=== PATIENT | female | born 1995 | race Hispanic/Latino ===

== ENCOUNTER 2017-02-24 16:49 | Outpatient (CLI) | payer BC ==
--- NOTE | 2017-02-24 22:31 | RAD ---
RIGHT FOOT THREE VIEWS: Date: 02-24-17 FINDINGS: No fracture, dislocation, or periosteal reaction was seen. The bones all appear normal. IMPRESSION: No acute finding. POS: HOME
== END 2017-02-24 16:50 | disposition home or self-care (01) ==
LOC: BURRAD 16:49
PROVIDERS: ATTEND Family Medicine
DX: M79.671 Pain in right foot (principal)

== ENCOUNTER 2019-03-18 11:35 | Outpatient (CLI) | payer BC ==
--- NOTE | 2019-03-18 20:16 | ULT ---
PELVIC ULTRASOUND WITH ENDOVAGINAL IMAGIN03/18/19 Ultrasonography of the pelvis was performed for evaluation of irregular bleeding. Scans were initiall y done with the abdominal probe and then followed by images with the endovaginal probe to better see the adnexa. The uterus appears normal and measures 5.6 x 2.7 x 3.8 cm. The endometrium is a normal 4 mm in thickn ess. The right ovary measures 2.6 cm in length. Blood flow is present in the right ovary. There is a 1.9 c m cyst within it with a minimal number of echoes. The left ovary has been surgically removed. There i s no free fluid. IMPRESSION: 1. 1.9 cm right ovarian cyst. 2. Left oophorectomy. POS: HOME
== END 2019-03-18 11:36 | disposition home or self-care (01) ==
LOC: BURULT 11:35
PROVIDERS: ATTEND Physician Assistant
DX: N92.4 Excessive bleeding in the premenopausal period (principal); N83.201 Unspecified ovarian cyst, right side; Z90.721 Acquired absence of ovaries, unilateral
CPT/HCPCS: 76856

== ENCOUNTER 2020-06-05 11:21 | Outpatient (CLI) | payer BC ==
--- NOTE | 2020-06-05 21:10 | RAD ---
CHEST TWO VIEWS: Date: 06-05-2020 Comparison: 04-16-11 FINDINGS: The heart is normal in size. There is no vascular congestion, edema, or pleural effusion. No focal pu lmonary infiltrates are seen. There is a 7 mm nodular density in the left midlung zone but I do not f ully appreciate on the 2010 exam. At most, there may be a small speck here. It is mostly a granuloma and in this age group is probably not of significance. The exam was otherwise unremarkable. IMPRESSION: No acute findings. POS: HOME
== END 2020-06-05 11:22 | disposition home or self-care (01) ==
LOC: BURRAD 11:21
PROVIDERS: ATTEND Physician Assistant
DX: J45.21 Mild intermittent asthma with (acute) exacerbation (principal)
CPT/HCPCS: 71046